=== PATIENT | female | born 1990 | race Caucasian/White ===

== ENCOUNTER 2021-08-01 07:33 | Emergency (ER) | payer OTHER, SELFPAY ==
[2021-08-01 07:49] VITALS: BP 134/85; PULSE 64; RESP 18; TEMP 36.8; O2SAT 98; BMI 35.5
--- NOTE | 2021-08-01 08:16 | ED_ITS ---
HPI - Medical Clearance General Chief complaint: Medical Clearance Stated complaint: med clearance Time Seen by Provider: 08/01/21 08:16 Source: patient Mode of arrival: ambulatory Limitations: no limitations History of Present Illness complaint: medical clearance requested Onset (ago): day(s) (1) Reason for Medical Clearance: other (issues at [facility] - requesting drug screen to settle dispute) Place: other ([facility]) Alleged Intoxication: No Compliant with Home Medications: Yes Traumatic Symptoms: denies traumatic injury Associated Symptoms: denies other symptoms Treatments Prior to Arrival: none Related Information Allergies Allergy/AdvReac Type Severity Reaction Status Date / Time No Known Allergies Allergy Verified 08/01/21 07:48 Review of Systems Review of Systems: Constitutional : No Fever, No Chills ENT/Mouth : No sore throat, No Rhinorrhea Eyes: No Eye Pain, No Swelling, No Redness Cardiovascular : No Chest Pain, No SOB Respiratory : No Cough, No Sputum Gastrointestinal : No Nausea, No Vomiting, No Diarrhea Genitourinary : No Dysuria Musculoskeletal : No joint pain, No Myalgias, No Joint Swelling Skin : No Skin Lesions, No rash Neuro : No Weakness, No Numbness, No Dizziness, No Headache Psych : No Anxiety/Panic, No Depression PMFSH Past Medical History Attestation statement: The following information was validated with the patient. Medical History Asthma Social History Social History (Updated 08/01/21 @ 08:23 by Zenobia Srivastava DO) Patient Tobacco Use Status: Current everyday Tobacco user Substance Use Type: Former Substance User Advance Directives: No Advance Directives Information Provided: No Physical Exam Vital Signs: Vital Signs: Last Vital Signs Temp 98.3 F 08/01/21 07:49 Pulse 64 08/01/21 07:49 Resp 18 08/01/21 07:49 BP 134/85 08/01/21 07:49 Pulse Ox 98 08/01/21 07:49 BMI result Body Mass Index 35.5 Appearance: Alert. Oriented X3. No acute distress. Eyes: Pupils equal, round and reactive to light. ENT: Pharynx normal. Neck: Normal inspection. Neck supple. CVS: Normal heart rate and rhythm. Pulses normal. Respiratory: No respiratory distress. Breath sounds normal. Abdomen: Soft and non-tender. Skin: Skin warm and dry. Normal skin color. Extremities: No lower extremity edema. Neuro: Oriented X 3. No motor deficit. No sensory deficit. MDM - Medical Clearance MDM Narrative Medical decision making narrative: 31 yo female with asthma at [facility] in recovery doing well having issues with other residents - seems to be some accusations of relapse among the residents. Patient requesting drug test at this time. Has no complaints does not appear under the influence. Drug test ordered. Discharge Plan Discharge Clinical Impression: Normal exam Patient Disposition: Home, Self-Care Instructions: Normal Exam (ED) Additional Instructions: return to ED for any worsening symptoms or concerns good luck with your recovery.
[2021-08-01 08:26] LABS: Amphetamine Screen Urine POSITIVE (Not Detect); Barbiturates, Urine Not Detected (Not Detect); Benzodiazepines Screen Urine Not Detected (Not Detect); Cannabinoid Screen Urine POSITIVE (Not Detect); Cocaine Screen Urine Not Detected (Not Detect); Fentanyl, urine POSITIVE (Not Detect); Opiate Screen Urine Not Detected (Not Detect); Phencyclidine Screen Urine Not Detected (Not Detect)
== END 2021-08-01 08:37 | disposition home or self-care (01) ==
PROVIDERS: Emergency Provider Emergency Medicine
DX: Z03.89 Encounter for observation for other suspected diseases and conditions ruled out (principal); J45.909 Unspecified asthma, uncomplicated
CPT/HCPCS: 80307; 99282

== ENCOUNTER 2023-08-19 09:10 | Emergency (ER) | payer OTHER, SELFPAY ==
--- NOTE | ~2023-08-19 | CT_ITS ---
EXAMINATION: CT HEAD WITHOUT CONTRAST CLINICAL INFORMATION: Headache. COMPARISON: 06/29/2017 TECHNIQUE: Contiguous axial imaging was performed from the skull base to vertex without intravenous administration of contrast. This CT examination was performed using dose optimization techniques as appropriate, variously including the following: *Automated exposure control *Adjustment of mA and/or kV according to patient size (this includes techniques or standardized protocols for targeted exams where dose is matched to indication/reason for exam; i.e. extremities or head) *Use of iterative reconstruction technique DLP: 667 mGy-cm FINDINGS: There is no evidence of acute intracranial hemorrhage or territorial infarction. No mass effect or midline shift is seen. [place] to white matter differentiation is well preserved. No extra-axial fluid collections are identified. No hydrocephalus. The osseous structures and soft tissues are intact. Mucoperiosteal thickening of the ethmoid air cells. Mild mucosal thickening of the sphenoid sinuses. Air-fluid levels in bilateral maxillary sinuses, right greater than left. Mastoid air cells are clear. CT/CT head/brain wo IV con IMPRESSION: No acute intracranial pathology. Acute maxillary sinus disease.
--- NOTE | ~2023-08-19 | XR_ITS ---
EXAMINATION: XR CHEST CLINICAL INFORMATION: Cough and shortness of breath COMPARISON: 06/29/2017 TECHNIQUE: 2 views of the chest were obtained. FINDINGS: No significant abnormality is noted involving the heart, lungs, mediastinum, bony thorax or soft tissues. XR/XR chest 2V IMPRESSION: Unremarkable examination.
[2023-08-19 09:14] VITALS: BP 119/46; PULSE 58; RESP 19; TEMP 36.6; O2SAT 98; BMI 33.3
--- NOTE | 2023-08-19 09:17 | ECG_ITS ---
Test Reason : syncope? Blood Pressure : / mmHG Vent. Rate : 062 BPM Atrial Rate : 062 BPM P-R Int : 152 ms QRS Dur : 098 ms QT Int : 392 ms P-R-T Axes : 034 040 022 degrees QTc Int : 397 ms Sinus rhythm with Premature atrial complexes Otherwise normal ECG No previous ECGs available Referred By: Generic ED Physician Electronically Signed By:MAK LOONEY MD
[2023-08-19 09:36] LABS: MANUAL DIFF FLAG NO
[2023-08-19 09:38] LABS: Basophils Percent Auto 0.6 % (0-2); Eosinophils Absolute Auto 0.7 X10*3/uL (0.0-0.4); Eosinophils Percent Auto 10.2 % (0-4); Hematocrit 37.2 % (37.0-47.0); Hemoglobin 12.1 g/dl (12.0-16.0); Imm Gran Abs Auto 0.01 X10*3/uL (0.00-0.03); Imm Gran Pct Auto 0.1 % (0.0-0.4); Lymphocytes Absolute Auto 2.3 X10*3/uL (1.2-4.9); Lymphocytes Percent Auto 32.3 % (20-40); Mean Corpuscular HGB Conc 32.5 g/dl (31.0-35.0); Mean Corpuscular Volume 89.2 fL (80.0-98.0); Mean Platelet Volume 9.6 fL (9.4-12.3); Monocytes Absolute Auto 0.7 X10*3/uL (0.1-1.2); Monocytes Percent Auto 9.2 % (2-11); Neutrophils Absolute Auto 3.4 x10*3/uL (2.0-8.3); Neutrophils Percent Auto 47.6 % (45-73); Platelet Count 280 X10*3/uL (160-400); Red Blood Count 4.17 X10*6/uL (4.20-5.50); White Blood Count 7.2 X10*3/uL (4.8-10.8)
[2023-08-19 09:42] LABS: UPreg QC Valid YES; Urine Pregnancy NEGATIVE (NEGATIVE)
[2023-08-19 09:52] LABS: Anion Gap 17 (12-20); Blood Urea Nitrogen 11 mg/dL (9-16); Calcium 9.6 mg/dL (8.4-10.2); Carbon Dioxide 26 mmol/L (22-29); Chloride 103 mmol/L (96-108); Creatinine Clr Calc Pharmacy 126.6; Estimated Glomerular Filt Rate > 60; Glucose Random 107 mg/dL (60-115); Potassium 3.6 mmol/L (3.3-5.1); Sodium 142 mmol/L (135-145)
[2023-08-19 09:55] LABS: Appearance Urine Clear; Color Urine Orange
[2023-08-19 09:56] LABS: Glucose Urine UA Negative (Negative); Urine Blood Negative (Negative)
[2023-08-19 09:57] LABS: Leukocyte Esterase Urine Negative (Negative); UMIC TRIGGER UACC YES
[2023-08-19 10:01] LABS: Troponin-I High Sensitivity < 2.7 ng/L (<3.5-17.0)
[2023-08-19 10:31] LABS: Influenza A PCR NEGATIVE (Negative); Influenza B PCR NEGATIVE (Negative); Resp Syncy Virus RNA Qual PCR NEGATIVE (Negative); SARS COV2 PCR INHOUSE NEGATIVE (Negative)
[2023-08-19 10:37] LABS: RBC Urine 0-2 /HPF (0-2); WBC Urine 0-5 /HPF (0-5)
[2023-08-19 10:38] LABS: Bacteria Urine None Seen (None Seen); Hyaline Casts Urine 0-2 /LPF (0-2)
[2023-08-19 12:32] VITALS: BP 133/76; PULSE 64; RESP 18; TEMP 36.6; O2SAT 98
--- NOTE | 2023-08-19 12:33 | ED.GENADULT ---
HPI - General Adult General Chief complaint: General Medical Stated complaint: Seizure this am? Facial pain Time Seen by Provider: 08/19/23 13:47 Source: patient Mode of arrival: ambulatory Limitations: no limitations History of Present Illness HPI narrative: Patient is a 33-year-old female with history of seizures on keppra and headaches presenting to the emergency department reporting that she got up to go to the bathroom at 3:00 a.m. last night and woke on the bathroom floor at 7:00 a.m. today. States she typically can tell when she has had a seizure and states this episode does not feel similar to that. She reports nausea and vomiting as well as headaches, cough and shortness of breath for 4 days prior to this episode. Complains of ongoing headache, especially around right eye. Denies diarrhea. Reports some mild lower abdominal cramping. States she has been taking her Keppra as prescribed. Also complains of scabs to her face and states that she had similar symptoms when she previously tested positive for syphilis. Denies rash anywhere else on her body. She reports that she has recently had unprotected sexual intercourse. Denies back or flank pain. Denies fevers. MD complaint: syncope versus seizure Onset (ago): hour(s) Location: head Radiation: non-radiation Severity: moderate Quality: aching Pain Consistency: constant Relieving factors: none Treatments prior to arrival: none Related Data Previous Rx's ?Medication ?Instructions ?Recorded amoxicillin 875 mg-potassium 1 tab PO BID #14 tabs 08/19/23 clavulanate 125 mg tablet metronidazole 500 mg tablet 500 mg PO BID #14 tabs 08/19/23 mupirocin 2 % topical ointment 1 appl topical BID #15 grams 08/19/23 Allergies Allergy/AdvReac Type Severity Reaction Status Date / Time No Known Allergies Allergy Verified 08/19/23 09:16 Review of Systems Review of Systems: As per HPI. Yes all other systems are reviewed and are negative Constitutional: Constitutional: Reports as per HPI [facility] Past Medical History Medical History Asthma Social History Social History (Updated 08/01/21 @ 08:23 by Lauryn Srivastava DO) Patient Tobacco Use Status: Current everyday Tobacco user Substance Use Type: Former Substance User Advance Directives: No Advance Directives Information Provided: Yes Physical Exam ED Vital Signs: Vital Signs - 24 hr 08/19/23 09:14 08/19/23 12:32 08/19/23 14:04 Temperature 98 F 98 F 99.0 F Pulse Rate 58 64 63 Respiratory Rate 19 18 16 Blood Pressure 119/46 L 133/76 114/57 L Pulse Oximetry 98 98 99 Oxygen Delivery Method Room Air Room Air Room Air BMI result Body Mass Index 33.3 Vital signs have been reviewed and appear to be correct. Blood pressure normal. Heart rate normal. Respiratory rate normal. Temperature normal. Oxygen saturation normal. Const General: cooperative, healthy appearing and no acute distress Orientation/consciousness: oriented to person, oriented to place, oriented to time and patient oriented x3 Limitations: no limitations HENMT Head: Yes normocephalic and Yes atraumatic Ears: external ears normal General nose exam: Normal external nose present Face and sinus: Yes face symmetric Mouth: oropharynx normal and moist mucous membranes Throat: Yes uvula midline Eyes Pupils: Equal, round and reactive pupils present Neck Neck: Yes normal visual inspection, Yes no meningeal signs and Yes supple Resp Effort & Inspection: normal respiratory effort and able to speak in complete sentences Auscultation: clear to auscultation bilaterally Cardio Rate: regular rate Rhythm: regular rhythm Heart sounds: S1 normal heart sound present and S2 normal heart sound present GI Palpation (GI): Soft to palpation and Tenderness to palpation present (GI) suprapubicly Auscultation: normoactive bowel sounds General: Yes no CVA tenderness Back/Spine/Pelvis Back: no CVA tenderness Skin Other: 1-2mm scabs to bridge of nose, chin, cheek without drainage, surrounding erythema, warmth or fluctuance General skin exam: elasticity normal and turgor normal Neuro General: oriented to person, oriented to place, oriented to time, patient oriented x3, gait normal, tone normal, moves all extremities, Normal light touch and pain sensation, no meningeal signs, no focal motor deficits, CN's II-XI intact bilaterally and deep tendon reflexes 2+ bilaterally Cranial nerves: Yes Equal, round and reactive pupils present Cognition (Neuro): normal cognition Motor exam (neuro): 5/5 motor strength present throughout, Pronator motor function not present, no tremor noted, no asterixis, Motor fasciculations not present, Normal motor muscle tone present throughout and Motor abnormalities not present Extrem General: Yes full ROM, Yes no pedal edema and Yes no calf tenderness Psych Mental Status: mental status grossly normal Affect: normal affect Thought process: Normal thought process present Course Course Course Narrative: This is a Rapid Medical Examination (RME) performed by Breanna Caldera PA-C in triage. Full HPI, ROS, assessment and treatment plan per primary provider in the Main ED. 33 yo female with history of seizure disorder on keppra 750 bid, headaches who presents to the ER for evaluation of a possible seizure vs syncopal episode. went to bathroom at 3am and woke up 7am on the floor. reports severe headache. has been sick for 4 days prior w/ sob, cough, congestion. also reports dysuria and vaginal pain, hx unprotected sex and wants evaluation for STIs. Plan: lab workup is unremarkable so far. check CXR check CT head Medications Administered Discontinued Medications Generic Name Dose Route Start Last Admin Trade Name Freq PRN Reason Stop Dose Admin Diphenhydramine HCl 25 mg 08/19/23 13:58 08/19/23 15:30 Diphenhydramine Hcl 50 Mg/Ml Vial IVPUSH 08/19/23 13:59 25 mg ONCE ONE Administration Sodium Chloride 1,000 mls @ 999 mls/hr 08/19/23 14:00 08/19/23 15:35 Ns IV 08/19/23 15:00 999 mls/hr .Q1H1M CYNTHIA Administration Ketorolac Tromethamine 15 mg 08/19/23 13:58 08/19/23 15:30 Ketorolac Tromethamine 15 Mg/Ml Vial IVPUSH 08/19/23 13:59 15 mg ONCE ONE Administration Metoclopramide HCl 10 mg 08/19/23 13:58 08/19/23 15:31 Metoclopramide Hcl 10 Mg/2 Ml Vial IVPUSH 08/19/23 13:59 10 mg ONCE ONE Administration Medical Decision Making Medical Decision Making MDM Narrative: Patient is a 33-year-old female with history of seizures on keppra and headaches presenting to the emergency department reporting that she got up to go to the bathroom at 3:00 a.m. last night and woke on the bathroom floor at 7:00 a.m. today. On exam patient is awake, A+Ox3, VS WNL, afebrile, normal neurological exam without focal deficits, physical exam findings as above. Given reported symptoms and physical exam findings, initial differential includes syncope, seizure, dehydration, electrolyte abnormality, UTI, STI, impetigo, secondary syphilis. Labs notable for no leukocytosis, no anemia, no significant electrolyte abnormalities, very slightly elevated CK, negative troponin. Viral serology negative. No evidence of infection on urinalysis, negative . EKG shows sinus rhythm with PACs. Urine is without evidence of infection. X-ray chest notable for no evidence of pneumonia. CT head notable for no acute intracranial abnormalities, acute sinusitis. My interpretation is in agreement with the radiologist's interpretation. Feel it in the context of recent vomiting, patient likely had syncopal episode due to dehydration. IV fluids given in the emergency department as well as medications for headache which improved patient's symptoms. Trichomonas swab positive, will send prescription for metronidazole. Some pelvic swabs which were self-obtained by patient are pending and patient will be contacted with any positive results. Rash on face more consistent with impetigo, will send prescription for mupirocin. Instructed patient follow-up with primary care provider. Return precautions discussed. Patient verbalized understanding of and agreement with plan. Differential Diagnosis Differential Diagnoses: The differential diagnosis associated with the presentation includes As per [facility] Admission/Observation Consideration of admission/observation: Escalation of care including admission/observation considered Patient would have been admitted to the hospital had their work up had any findings where hospital admission was appropriate and their clinical presentation warranted hospital admission. Lab Data [facility] Lab Attestation statement: I reviewed the patient's lab results. As per [facility] 08/19/23 09:30 08/19/23 09:30 Labs: Lab Results 08/19/23 Range/Units 09:30 WBC 7.2 (4.8-10.8) X10*3/uL RBC 4.17 L (4.20-5.50) X10*6/uL Hgb 12.1 (12.0-16.0) g/dl Hct 37.2 (37.0-47.0) % MCV 89.2 (80.0-98.0) fL MCH 29.0 (27.0-33.0) pg MCHC 32.5 (31.0-35.0) g/dl RDW 13.0 (11.0-16.0) % Plt Count 280 (160-400) X10*3/uL MPV 9.6 (9.4-12.3) fL Immature Gran % (Auto) 0.1 (0.0-0.4) % Neut % (Auto) 47.6 (45-73) % Lymph % (Auto) 32.3 (20-40) % [place] % (Auto) 9.2 (2-11) % Eos % (Auto) 10.2 H (0-4) % Baso % (Auto) 0.6 (0-2) % Lymph # (Auto) 2.3 (1.2-4.9) X10*3/uL [place] # (Auto) 0.7 (0.1-1.2) X10*3/uL Eos # (Auto) 0.7 H (0.0-0.4) X10*3/uL Baso # (Auto) 0.0 (0.0-0.2) X10*3/uL Abs Immat Gran (auto) 0.01 (0.00-0.03) X10*3/uL Absolute Neuts (auto) 3.4 (2.0-8.3) x10*3/uL Absolute Nucleated RBC 0.000 (0.0-0.012) X10*3/uL Nucleated RBC % (auto) 0.0 (0.0-0.2) /100WBC Sodium 142 (135-145) mmol/L Potassium 3.6 (3.3-5.1) mmol/L Chloride 103 (96-108) mmol/L Carbon Dioxide 26 (22-29) mmol/L Anion Gap 17 (12-20) BUN 11 (9-16) mg/dL Creatinine 0.71 (0.5-1.4) mg/dL Estim Creat Clear Calc 126.6 Estimated GFR > 60 Random Glucose 107 (60-115) mg/dL Calcium 9.6 (8.4-10.2) mg/dL Total Creatine Kinase 147 H (26-140) U/L Troponin I High Sens < 2.7 (<3.5-17.0) ng/L Urine Color [place] Urine Appearance Clear Urine pH TNP Ur Specific [place] TNP Urine Protein See Note (Neg-Trace) mg/dL Urine Glucose (UA) Negative (Negative) mg/dL Urine Ketones See Note (Negative) mg/dL Urine Blood Negative (Negative) Urine Nitrite See Note (Negative) Ur Leukocyte Esterase Negative (Negative) Urine RBC 0-2 (0-2) /HPF Urine WBC 0-5 (0-5) /HPF Ur Squamous Epith Cells 3-5 (0-2) /HPF Urine Bacteria None Seen (None Seen) Hyaline Casts 0-2 (0-2) /LPF Urine Test NEGATIVE (NEGATIVE) Influenza Type A (PCR) NEGATIVE (Negative) Influenza Type B (PCR) NEGATIVE (Negative) RSV RNA Qual (PCR) NEGATIVE (Negative) SARS-CoV-2 RNA (RT-PCR) NEGATIVE (Negative) Independent Interpretation I performed an independent interpretation of an: Plain X-Ray and CT Scan Interpretation: No evidence of pneumonia on chest x-ray No acute intracranial abnormalities on CT, acute sinusitis noted Radiology Impression Discussion of test interpretation with radiology: I have reviewed the radiologist's reading. Radiologist Impression: XR/XR chest 2V IMPRESSION: Unremarkable examination. CT/CT head/brain wo IV con IMPRESSION: No acute intracranial pathology. Acute maxillary sinus disease. External Record Review External record reviewed: Inpatient record, Office record and Outpatient record Prescription Management I considered prescription management with: Antibiotic Discharge Plan Discharge Clinical Impression: Acute rhinosinusitis, Trichomoniasis Patient Disposition: Home, Self-Care Instructions: Syncope (DC), Rhinosinusitis (DC) Additional Instructions: You were evaluated in the emergency department today for headache and unresponsive episode. This appears to be related to dehydration from your recent illness and vomiting. We recommend that you ensure adequate fluid intake, especially fluids with electrolytes such as Gatorade, Powerade, Pedialyte, etc.. You are being prescribed antibiotics for a sinus infection, please complete the full course as prescribed. You are also being prescribed antibiotics for trichomoniasis. You are being prescribed an antibiotic ointment for the areas on your face, use this as prescribed. Some tests are still pending and you will be contacted with any positive results. Please follow-up with your primary care provider. Return to the emergency department with any new or concerning symptoms. Prescriptions: New amoxicillin-pot clavulanate 875-125 mg tablet 1 tab PO BID Qty: 14 0RF mupirocin 2 % ointment 1 appl topical BID Qty: 15 0RF metronidazole 500 mg tablet 500 mg PO BID Qty: 14 0RF Print Language: Serbian
[2023-08-19 14:04] VITALS: BP 114/57; PULSE 63; RESP 16; TEMP 37.2; O2SAT 99
[2023-08-19] MEDS: Ketorolac Tromethamine 15 MG/ML VIAL IVPUSH (15:30)
[2023-08-19] MEDS: diphenhydrAMINE HCL 50 MG/ML VIAL 25 MG IVPUSH (15:30)
[2023-08-19] MEDS: Metoclopramide HCl 10 MG/2 ML VIAL IVPUSH (15:31)
[2023-08-19] MEDS: 0.9 % Sodium Chloride 1,000 ML 999 ML IV (15:35)
[2023-08-19 17:26] VITALS: BP 100/54; PULSE 59; RESP 14; TEMP 36.7; O2SAT 98
[2023-08-19 17:33] LABS: CT PCR NOT DETECTED (Not Detect.); NG PCR NOT DETECTED (Not Detect.)
[2023-08-20 08:47] LABS: Syphilis Screen Reactive (Nonreactive)
[2023-08-20 12:21] LABS: BV Int Neg Control Negative (Negative); BV Int Pos Control Positive (Positive)
[2023-08-26 09:14] LABS: RPR Quantitative Reactive 1:2 (Nonreactive); T.Pallidum Particle Agg Test Reactive (Nonreactive)
== END 2023-08-19 17:27 | disposition home or self-care (01) ==
PROVIDERS: Physician Assistant; Registered Nurse Emergency; Emergency Provider Emergency Medicine
DX: J01.90 Acute sinusitis, unspecified (principal); A59.9 Trichomoniasis, unspecified; R11.2 Nausea with vomiting, unspecified; R23.4 Changes in skin texture; R06.02 Shortness of breath; R05.9 Cough, unspecified; R94.31 Abnormal electrocardiogram [ECG] [EKG]; R51.9 Headache, unspecified; Z11.52 Encounter for screening for COVID-19; Z20.822 Contact with and (suspected) exposure to COVID-19; Z79.899 Other long term (current) drug therapy
CPT/HCPCS: 0241U; 0353U; 36415; 70450; 71046; 80048; 81001; 81025; 82550; 84484; 85025; 86592; 86780; 87480; 87510; 87660; 93005; 96374; 96375; 99284; J1200; J1885; J2765

== ENCOUNTER → 2023-08-19 09:17 | Outpatient (BNV) | payer OTHER, SELFPAY | PROVIDERS: Visit Provider Internal Medicine Cardiovascular Disease | DX: R55 Syncope and collapse (principal) | CPT/HCPCS: 93010 ==

== ENCOUNTER 2023-08-22 11:15 | Emergency (ER) | payer OTHER, SELFPAY ==
[2023-08-22 11:38] VITALS: BP 119/50; PULSE 63; RESP 16; TEMP 37; O2SAT 95; BMI 35.8
--- NOTE | 2023-08-22 11:38 | ED.GENADULT ---
HPI - General Adult General Chief complaint: Urogenital-Female Stated complaint: Returning per provider Time Seen by Provider: 08/22/23 11:41 Source: patient and old records reviewed Mode of arrival: ambulatory Limitations: no limitations History of Present Illness HPI narrative: Patient is a 33-year-old female with history of seizures on keppra presenting to the ED after receiving a callback for a positive syphilis test performed on 08/18. Patient denies any new symptoms and states that she has been taking her Keppra as prescribed. Denies any seizures since previous visit. complaint: syphilis Onset (ago): day(s) Associated symptoms: denies other symptoms Treatments prior to arrival: none Related Data Previous Rx's ?Medication ?Instructions ?Recorded amoxicillin 875 mg-potassium 1 tab PO BID #14 tabs 08/19/23 clavulanate 125 mg tablet metronidazole 500 mg tablet 500 mg PO BID #14 tabs 08/19/23 mupirocin 2 % topical ointment 1 appl topical BID #15 grams 08/19/23 fluconazole 150 mg tablet 150 mg PO Q3D 2 doses #2 tabs 08/22/23 Allergies Allergy/AdvReac Type Severity Reaction Status Date / Time No Known Allergies Allergy Verified 08/22/23 11:39 Review of Systems Review of Systems: As per HPI Yes all other systems are reviewed and are negative Constitutional: Constitutional: Reports as per HPI [facility] Past Medical History Medical History Asthma Social History Social History (Updated 08/01/21 @ 08:23 by Lauryn Srivastava DO) Patient Tobacco Use Status: Current everyday Tobacco user Substance Use Type: Former Substance User Advance Directives: No Physical Exam ED Vital Signs: Vital Signs - 24 hr 08/22/23 11:38 Temperature 98.6 F Pulse Rate 63 Respiratory Rate 16 Blood Pressure 119/50 L Pulse Oximetry 95 Oxygen Delivery Method Room Air BMI result Body Mass Index 35.8 Vital signs have been reviewed and appear to be correct. Blood pressure normal. Heart rate normal. Respiratory rate normal. Temperature normal. Oxygen saturation normal. Const General: cooperative, healthy appearing and no acute distress Orientation/consciousness: oriented to person, oriented to place, oriented to time and patient oriented x3 Limitations: no limitations HENMT Head: Yes normocephalic and Yes atraumatic Ears: external ears normal General nose exam: Normal external nose present Face and sinus: Yes face symmetric Mouth: oropharynx normal and moist mucous membranes Throat: Yes uvula midline Eyes Pupils: Equal, round and reactive pupils present Neck Neck: Yes normal visual inspection and Yes supple Resp Effort & Inspection: normal respiratory effort and able to speak in complete sentences Auscultation: clear to auscultation bilaterally Cardio Rate: regular rate Rhythm: regular rhythm Heart sounds: S1 normal heart sound present and S2 normal heart sound present GI Palpation (GI): Soft to palpation and nontender Auscultation: normoactive bowel sounds General: Yes no CVA tenderness Back/Spine/Pelvis Back: no CVA tenderness Skin Other: scabs to face improved from visit on 08/18 General skin exam: elasticity normal and turgor normal Neuro General: oriented to person, oriented to place, oriented to time, patient oriented x3, moves all extremities, no focal motor deficits and CN's II-XI intact bilaterally Cranial nerves: Yes Equal, round and reactive pupils present Cognition (Neuro): normal cognition Extrem General: Yes full ROM, Yes no pedal edema and Yes no calf tenderness Psych Mental Status: mental status grossly normal Affect: normal affect Thought process: Normal thought process present Course Course Course Narrative: RME performed by Alie Cordova PA-C. Patient is a 33 year old assigned female at presenting to the emergency department with a positive syphilis test. Patient states she was called and informed of a positive syphilis test. Patient states that she continues to take her Keppra as directed. Detailed physical exam and review of systems are deferred to the trolley coach driver. Labs ordered. Patient placed back in the waiting room pending room availability and results. Medications Administered Discontinued Medications Generic Name Dose Route Start Last Admin Trade Name Freq PRN Reason Stop Dose Admin Penicillin G Benzathine 2,400,000 unit 08/22/23 11:39 08/22/23 11:47 Penicillin G Benzathine 2,400,000 Unit/4 Ml Syringe IM 08/22/23 11:40 2,400,000 unit ONCE ONE Administration Medical Decision Making Medical Decision Making MDM Narrative: Patient is a 33-year-old female with history of seizures on keppra presenting to the ED after receiving a callback for a positive syphilis test performed on 08/18. On exam patient is awake, A+Ox3, VS WNL, afebrile, normal neurological exam without focal deficits, physical exam findings as above. Given reported symptoms and physical exam findings, initial differential includes syphilis, at risk for HIV. Labs unremarkable, HIV and keppra testing pending and patient will be contacted with any positive results.. Patient treated with PCN G, mandatory reporting form completed. Instructed patient to notify any sexual partners of her positive results and to abstain from intercourse for the next 7 days. Patient stating that she needs to leave the emergency department and is not willing to wait for Infectious Disease consult. Will refer patient to ID outpatient. Patient also requesting referral to Neurology. Return precautions discussed. Patient verbalized understanding of and agreement with plan. Differential Diagnosis Differential Diagnoses: The differential diagnosis associated with the presentation includes syphilis, hiv, Lab Data [facility] Lab Attestation statement: I reviewed the patient's lab results. As per [facility] 08/22/23 11:55 08/22/23 11:55 Labs: Lab Results 08/22/23 Range/Units 11:55 WBC 6.1 (4.8-10.8) X10*3/uL RBC 4.18 L (4.20-5.50) X10*6/uL Hgb 12.2 (12.0-16.0) g/dl Hct 37.3 (37.0-47.0) % MCV 89.2 (80.0-98.0) fL MCH 29.2 (27.0-33.0) pg MCHC 32.7 (31.0-35.0) g/dl RDW 13.2 (11.0-16.0) % Plt Count 245 (160-400) X10*3/uL MPV 9.7 (9.4-12.3) fL Immature Gran % (Auto) 0.2 (0.0-0.4) % Neut % (Auto) 51.9 (45-73) % Lymph % (Auto) 28.5 (20-40) % [place] % (Auto) 8.5 (2-11) % Eos % (Auto) 10.1 H (0-4) % Baso % (Auto) 0.8 (0-2) % Lymph # (Auto) 1.8 (1.2-4.9) X10*3/uL [place] # (Auto) 0.5 (0.1-1.2) X10*3/uL Eos # (Auto) 0.6 H (0.0-0.4) X10*3/uL Baso # (Auto) 0.1 (0.0-0.2) X10*3/uL Abs Immat Gran (auto) 0.01 (0.00-0.03) X10*3/uL Absolute Neuts (auto) 3.2 (2.0-8.3) x10*3/uL Absolute Nucleated RBC 0.000 (0.0-0.012) X10*3/uL Nucleated RBC % (auto) 0.0 (0.0-0.2) /100WBC Sodium 141 (135-145) mmol/L Potassium 3.9 (3.3-5.1) mmol/L Chloride 108 (96-108) mmol/L Carbon Dioxide 26 (22-29) mmol/L Anion Gap 11 L (12-20) BUN 9 (9-16) mg/dL Creatinine 0.70 (0.5-1.4) mg/dL Estim Creat Clear Calc 133.4 Estimated GFR > 60 Random Glucose 71 (60-115) mg/dL Calcium 8.9 D (8.4-10.2) mg/dL Magnesium 1.9 (1.6-2.6) mg/dL Total Bilirubin 0.3 (0.0-1.0) mg/dL AST 18 (5-31) U/L ALT 14 (0-31) U/L Alkaline Phosphatase 49 (39-117) U/L Total Protein 6.7 (6.5-8.0) g/dL Albumin 3.8 (3.5-5.0) g/dL External Record Review External record reviewed: Inpatient record, Office record and Outpatient record Prescription Management I considered prescription management with: Antibiotic Discharge Plan Discharge Clinical Impression: Syphilis Patient Disposition: Home, Self-Care Instructions: Sexually Transmitted Diseases (ED), Safe Sex Practices (ED) Additional Instructions: You were treated in the emergency department today with penicillin after you tested positive for syphilis. It is important that you notify any sexual partners of your positive results and you should abstain from intercourse for the next 7 days. You were given additional testing today for HIV and if the results are positive you will be contacted. We recommend that you follow-up with Infectious Disease, please call their office to schedule an appointment. Your Keppra level was tested today and you will be contacted if any changes need to be made to her medications. You are also being referred to neurology. Return to the emergency department if you have any new or concerning symptoms. Prescriptions: No Action amoxicillin-pot clavulanate 875-125 mg tablet 1 tab PO BID Qty: 14 0RF mupirocin 2 % ointment 1 appl topical BID Qty: 15 0RF metronidazole 500 mg tablet 500 mg PO BID Qty: 14 0RF fluconazole 150 mg tablet 150 mg PO Q3D Qty: 2 0RF Referrals: [facility] [place] [Provider Group] Moses Vallejo MD [Physician] - Print Language: [place]
[2023-08-22] MEDS: Penicillin G Benzathine 2,400,000 UNIT/4 ML SYRINGE 2400000 UNIT IM (11:47)
[2023-08-22 11:59] LABS: MANUAL DIFF FLAG NO
[2023-08-22 12:01] LABS: Basophils Absolute Auto 0.1 X10*3/uL (0.0-0.2); Basophils Percent Auto 0.8 % (0-2); Eosinophils Absolute Auto 0.6 X10*3/uL (0.0-0.4); Eosinophils Percent Auto 10.1 % (0-4); Hematocrit 37.3 % (37.0-47.0); Hemoglobin 12.2 g/dl (12.0-16.0); Imm Gran Abs Auto 0.01 X10*3/uL (0.00-0.03); Imm Gran Pct Auto 0.2 % (0.0-0.4); Lymphocytes Absolute Auto 1.8 X10*3/uL (1.2-4.9); Lymphocytes Percent Auto 28.5 % (20-40); Mean Corpuscular HGB Conc 32.7 g/dl (31.0-35.0); Mean Corpuscular Hemoglobin 29.2 pg (27.0-33.0); Mean Corpuscular Volume 89.2 fL (80.0-98.0); Mean Platelet Volume 9.7 fL (9.4-12.3); Monocytes Absolute Auto 0.5 X10*3/uL (0.1-1.2); Monocytes Percent Auto 8.5 % (2-11); Neutrophils Absolute Auto 3.2 x10*3/uL (2.0-8.3); Neutrophils Percent Auto 51.9 % (45-73); Platelet Count 245 X10*3/uL (160-400); Red Blood Count 4.18 X10*6/uL (4.20-5.50); Red Cell Distribution Width 13.2 % (11.0-16.0); White Blood Count 6.1 X10*3/uL (4.8-10.8)
[2023-08-22 12:18] LABS: Alanine Aminotransferase 14 U/L (0-31); Albumin Level 3.8 g/dL (3.5-5.0); Alkaline Phosphatase 49 U/L (39-117); Anion Gap 11 (12-20); Aspartate Amino Transferase 18 U/L (5-31); Bilirubin Total 0.3 mg/dL (0.0-1.0); Blood Urea Nitrogen 9 mg/dL (9-16); Calcium 8.9 mg/dL (8.4-10.2); Carbon Dioxide 26 mmol/L (22-29); Chloride 108 mmol/L (96-108); Creatinine Clr Calc Pharmacy 133.4; Estimated Glomerular Filt Rate > 60; Glucose Random 71 mg/dL (60-115); Magnesium 1.9 mg/dL (1.6-2.6); Potassium 3.9 mmol/L (3.3-5.1); Sodium 141 mmol/L (135-145); Total Protein 6.7 g/dL (6.5-8.0)
[2023-08-22 12:37] VITALS: BP 119/75; PULSE 57; RESP 16; TEMP 36.7; O2SAT 97
[2023-08-22 12:39] LABS: HIV AB/AG Nonreactive (Nonreactive); HIV Num 1 0.04 S/CO (0.00-0.99)
[2023-08-25 19:57] LABS: Levetiracetam Keppra <2.0 mcg/mL (6.0-46.0)
== END 2023-08-22 12:39 | disposition home or self-care (01) ==
PROVIDERS: Physician Assistant Medical; Registered Nurse Emergency; Emergency Provider Emergency Medicine
DX: A53.9 Syphilis, unspecified (principal); R56.9 Unspecified convulsions; Z79.899 Other long term (current) drug therapy
CPT/HCPCS: 36415; 80053; 80177; 83735; 85025; 87389; 96372; 99282; 99284; J0561

== ENCOUNTER 2023-10-07 23:38 | Emergency (ER) | payer OTHER, SELFPAY ==
[2023-10-08 00:13] VITALS: BP 102/53; PULSE 80; RESP 20; TEMP 36.6; O2SAT 98; BMI 35.2
--- NOTE | 2023-10-08 02:22 | ED_ITS ---
HPI - General Adult General Chief complaint: General Medical Stated complaint: uro gen female Time Seen by Provider: 10/08/23 02:08 Source: patient Mode of arrival: ambulatory Limitations: no limitations History of Present Illness ED Provider: DR. Perez HPI narrative: 33-year-old female recently had unprotected sex, patient was tested positive for syphilis patient received penicillin G treatment a month and half, patient still have the same symptoms of lower abdominal cramps and vaginal discharge would like to repeat treatment for syphilis and be retested. Related Data Previous Rx's ?Medication ?Instructions ?Recorded amoxicillin 875 mg-potassium 1 tab PO BID #14 tabs 08/19/23 clavulanate 125 mg tablet metronidazole 500 mg tablet 500 mg PO BID #14 tabs 08/19/23 mupirocin 2 % topical ointment 1 appl topical BID #15 grams 08/19/23 fluconazole 150 mg tablet 150 mg PO Q3D 2 doses #2 tabs 08/22/23 Allergies Allergy/AdvReac Type Severity Reaction Status Date / Time No Known Allergies Allergy Verified 10/08/23 00:16 Review of Systems Review of Systems: All other systems are reviewed and are negative Constitutional: Reports as per HPI and Reports no additional constitutional complaints Eyes: Reports as per HPI and Reports no additional eye complaints Reports system reviewed and no additional complaints, except as documented Cardiovascular: Reports as per HPI and Reports no additional cardiovascular complaints Respiratory: Reports as per HPI and Reports no additional respiratory complaints Gastrointestinal: Reports as per HPI and Reports no additional gastrointestinal complaints Genitourinary: Reports no additional female genitourinary complaints Musculoskeletal: Reports no additional musculoskeletal complaints Skin/Breast: Reports system reviewed and no additional complaints, except as docu Psychiatric: Reports no additional psychiatric complaints Endocrine: Reports no additional endocrine complaints Hematologic/Lymphatic: Reports no additional hematologic/lymphatic complaints Allergic/Immunologic: Reports no additional allergic/immunologic complaints Reports system reviewed and no additional complaints, except as documented and Reports Abnormal speech present [facility] Past Medical History Medical History Asthma Social History Social History Patient Tobacco Use Status: Current everyday Tobacco user Substance Use Type: Former Substance User Advance Directives: No Advance Directives Information Provided: No Physical Exam ED Vital Signs: Vital Signs - 24 hr 10/08/23 00:13 Temperature 97.9 F Pulse Rate 80 Respiratory Rate 20 Blood Pressure 102/53 L Pulse Oximetry 98 Oxygen Delivery Method Room Air BMI result Body Mass Index 35.2 Vital signs have been reviewed and appear to be correct. Blood pressure elevated. Heart rate normal. Respiratory rate normal. Temperature normal. Oxygen saturation normal. Appearance: Alert. Oriented X3. No acute distress. Head: Normal external exam. Normocephalic. Atraumatic. No Small signs noted. No raccoon eyes noted Eyes: PERRLA. EOMI. Conjunctiva and sclera normal. Eyelids normal. ENT: TM's Normal. Pharynx normal. Uvula midline. Moist mucous membranes. No trismus noted. No drooling noted. No muffled voice noted. Neck: Normal inspection. Neck supple. FROM. No adenopathy. Thyroid Normal. No meningeal signs. No neck mass noted. CVS: Normal heart rate and rhythm. Heart sound normal. No murmurs noted. Pulses normal throughout. Respiratory: No respiratory distress. Painless inspiration. Breath sounds normal. No wheezes/rales/rhonchi noted. Chest nontender. No accessory muscle usage noted or decreased air movement noted. Abdomen: Soft and nontender. Bowel sounds normal in all 4 quadrants. No distention noted. No organomegaly noted. No visible injury noted. Back: No CVA tenderness. Full range of motion noted. Skin: Skin warm and dry. Normal skin color. Normal skin turgor. No rashes /lesions/lacerations noted. Extremities: No lower extremity edema. Extremities exhibit normal range of motion. Extremities nontender. Neuro: Oriented X 3. Cranial nerve exam: II-XII are grossly intact No motor deficit. No sensory deficit. Reflexes normal. Course Reevaluation(s) Reevaluation #1: History of unprotected sex, patient had history of syphilis via sexual intercourse was treated with penicillin G patient still concern of the disease and would like to be rechecked and re-treated today. No known history of penicillin allergy I will repeat penicillin G injection. We test for STDs. Time: 02:31 Medical Decision Making Differential Diagnosis Differential Diagnoses: The differential diagnosis associated with the presentation includes (STDs) Admission/Observation Consideration of admission/observation: Escalation of care including admission/observation considered Discharge Plan Discharge Clinical Impression: Exposure to STD Patient Disposition: Home, Self-Care Instructions: Sexually Transmitted Diseases (ED), Safe Sex Practices (ED) Prescriptions: No Action amoxicillin-pot clavulanate 875-125 mg tablet 1 tab PO BID Qty: 14 0RF mupirocin 2 % ointment 1 appl topical BID Qty: 15 0RF metronidazole 500 mg tablet 500 mg PO BID Qty: 14 0RF fluconazole 150 mg tablet 150 mg PO Q3D Qty: 2 0RF Print Language: Sami
[2023-10-08] MEDS: Penicillin G Benzathine 2,400,000 UNIT/4 ML SYRINGE 2400000 UNIT IM (02:42)
[2023-10-08 03:08] VITALS: BP 100/54; PULSE 65; RESP 16; TEMP 36.5; O2SAT 96
[2023-10-08 03:21] VITALS: BP 100/54; PULSE 65; RESP 16; TEMP 36.5; O2SAT 96
[2023-10-08 07:49] LABS: HBS Num1 0.39 mIU/mL (0-7.99); HBc Num1 0.14 S/CO (0.00-0.79); HBsAGNum1 0.28 S/CO (0.00-0.99); HIV Num 1 6.83 S/CO (0.00-0.99); Hepatitis A Antibody IgM 0.19 Index (0-0.79); Hepatitis B Core Antibody Nonreactive (Nonreactive); Hepatitis B Surface Antigen Negative (Negative); ~HepC Num1 0.22 S/CO (0.00-0.79); ~Hepatitis A Antibody IgM Nonreactive (Nonreactive); ~Hepatitis B Surface Antibody NONREACTIVE (Nonreactive); ~Hepatitis C Antibody Nonreactive (Nonreactive)
[2023-10-08 08:04] LABS: Syphilis Screen Reactive (Nonreactive)
[2023-10-08 09:04] LABS: HIV AB/AG Nonreactive (Nonreactive); HIV Num 2 0.06 S/CO; HIV Num 3 0.07 S/CO
[2023-10-08 12:10] LABS: CT PCR NOT DETECTED (Not Detect.); NG PCR NOT DETECTED (Not Detect.)
[2023-10-09 09:33] LABS: Herpes Simplex Type 2 IgG <0.90 index
[2023-10-10 12:19] LABS: RPR Quantitative Reactive 1:2 (Nonreactive); T.Pallidum Particle Agg Test Reactive (Nonreactive)
== END 2023-10-08 03:22 | disposition home or self-care (01) ==
PROVIDERS: Emergency Provider Emergency Medicine
DX: N89.8 Other specified noninflammatory disorders of vagina (principal); R10.9 Unspecified abdominal pain; Z20.2 Contact with and (suspected) exposure to infections with a predominantly sexual mode of transmission
CPT/HCPCS: 36415; 86592; 86695; 86696; 86704; 86706; 86709; 86780; 86803; 87340; 87389; 87491; 87591; 96372; 99283; 99284; J0561

== ENCOUNTER 2023-10-23 11:30 | Outpatient (AMB) | payer OTHER, SELFPAY ==
--- NOTE | 2023-10-23 11:30 | MHC.OFFVIS ---
Vital Signs 10/23/23 11:34 Height 5 ft 5 in Weight 210 lb BMI 34.9 Pulse 85 Pulse Source Pulse Oximeter Pulse Oximetry (%) 98 Oxygen Delivery Method Room Air Intake Visit Reasons: reff ER for std exposure syphillis Allergies No Known Allergies Allergy (Verified 10/30/23 16:53) HPI HPI reff ER for std exposure syphillis: Details: She has positive syphilis titer 1:2 She also has positive trichomonas. HIV is negative. She doesnt know of exposure. [facility] Medical History (Updated 11/02/23 @ 23:50 by Chio Meza MD) Syphilis (acquired) Asthma Social History Patient Tobacco Use Status: Current everyday Tobacco user Substance Use Type: Former Substance User Advance Directives: No Advance Directives Information Provided: No Review of Systems Const All systems reviewed & are unremarkable except as noted in HPI and below Physical Exam Vital Signs: Last Vital Signs Pulse 85 10/23/23 11:34 Pulse Ox 98 10/23/23 11:34 Oxygen Delivery Method Room Air 10/23/23 11:34 BMI result Body Mass Index 34.9 Const General: cooperative HEENT Head: Yes normal to inspection Face and sinus: Yes normal facial exam Mouth: Normal oral and palatal mucosa present Teeth and gingiva: dentition normal Eyes General: appearance normal, both eyes and all related structures Pupils: Equal, round and reactive pupils present Resp Effort & Inspection: normal respiratory effort Cardio Rate: regular rate Rhythm: regular rhythm GI Palpation (GI): Soft to palpation and nontender General: Yes no CVA tenderness Back/Spine/Pelvis Back: no CVA tenderness Skin General skin exam: no rashes or lesions noted Neuro General: moves all extremities Cranial nerves: Yes Equal, round and reactive pupils present Extrem General: Yes normal to inspection Psych Appearance: grossly normal Assessment & Plan Assessment & Plan (1) Syphilis: Code(s): A53.9 - Syphilis, unspecified Category: Medical Plan: na (2) Syphilis (acquired): Comment: She has low titer but concerned about lack of energy?reinfection but doubt Code(s): A53.9 - Syphilis, unspecified Category: Medical Plan: Can give Doxycycline prophylaxis one month Plan na Orders: Orders RPR Monitor reflex titer 3 Months A53.9 - Syphilis, unspecified Medications: New doxycycline hyclate 100 mg PO BID 60 caps 0RF 30 days Discontinued metronidazole Discontinued Reason: Patient no longer taking 500 mg PO BID 14 tabs 0RF fluconazole Discontinued Reason: Patient no longer taking 150 mg PO Q3D 2 tabs 0RF amoxicillin-pot clavulanate 875-125 mg Discontinued Reason: Patient no longer taking 1 tab PO BID 14 tabs 0RF mupirocin 2% Discontinued Reason: Patient no longer taking 1 appl topical BID 15 grams 0RF Coding Level of Care Code New Pt Level 3 (11735) Diagnoses Syphilis A53.9 Syphilis (acquired) A53.9
[2023-10-23 11:34] VITALS: PULSE 85; O2SAT 98; BMI 34.9
== END 2023-10-23 12:08 | disposition home or self-care (01) ==
LOC: HO.HID 11:30
PROVIDERS: Visit Provider Internal Medicine
DX: A53.9 Syphilis, unspecified (principal)
CPT/HCPCS: 99203

== ENCOUNTER → 2023-10-23 11:30 | Outpatient (BNVA) | payer OTHER, SELFPAY | PROVIDERS: Visit Provider Internal Medicine | DX: A53.9 Syphilis, unspecified (principal) | CPT/HCPCS: 99202 ==

== ENCOUNTER 2023-10-30 16:31 | Emergency (ER) | payer MEDICAID, SELFPAY ==
[2023-10-30 16:51] VITALS: BP 119/62; PULSE 82; RESP 16; TEMP 36.6; O2SAT 94; BMI 35.0
--- NOTE | 2023-10-30 16:51 | ED_ITS ---
HPI - General Adult General Chief complaint: Urogenital-Female Stated complaint: UTI Time Seen by Provider: 10/30/23 18:42 Source: patient Mode of arrival: ambulatory Limitations: no limitations History of Present Illness ED Provider: robinson GOMEZ narrative: Patient is a 33-year-old female presenting to the ED with complaint of urinary urgency, dysuria, some hematuria x 4 days. Temp of 100 earlier today. Nausea without vomiting. Denies abdominal pain. States feels similar to prior UTIs. complaint: dysuria Onset (ago): day(s) Quality: burning Treatments prior to arrival: none Related Data Home Medications ?Medication ?Instructions ?Recorded ?Confirmed levetiracetam 750 mg tablet 750 mg PO BID 10/23/23 ([place]) Previous Rx's ?Medication ?Instructions ?Recorded doxycycline hyclate 100 mg capsule 100 mg PO BID 30 days #60 caps 10/23/23 cefuroxime axetil 250 mg tablet 250 mg PO BID #14 tabs 10/30/23 phenazopyridine 100 mg tablet 100 mg PO TID PRN pain 6 doses #6 10/30/23 tabs Allergies Allergy/AdvReac Type Severity Reaction Status Date / Time No Known Allergies Allergy Verified 10/30/23 16:53 Review of Systems Review of Systems: As per HPI. Yes all other systems are reviewed and are negative Constitutional: Constitutional: Reports as per HPI [facility] Past Medical History Medical History Asthma Social History Social History Patient Tobacco Use Status: Current everyday Tobacco user Substance Use Type: Former Substance User Advance Directives: No Advance Directives Information Provided: No Physical Exam ED Vital Signs: Vital Signs - 24 hr 10/30/23 16:51 Temperature 98 F Pulse Rate 82 Respiratory Rate 16 Blood Pressure 119/62 Pulse Oximetry 94 Oxygen Delivery Method Room Air BMI result Body Mass Index 35.0 Vital signs have been reviewed and appear to be correct. Blood pressure normal. Heart rate normal. Respiratory rate normal. Temperature normal. Oxygen saturation normal. Const General: cooperative, healthy appearing and no acute distress Orientation/consciousness: oriented to person, oriented to place, oriented to time and patient oriented x3 Limitations: no limitations HENMT Head: Yes normocephalic and Yes atraumatic Ears: external ears normal General nose exam: Normal external nose present Face and sinus: Yes face symmetric Mouth: oropharynx normal and moist mucous membranes Throat: Yes uvula midline Eyes Pupils: Equal, round and reactive pupils present Neck Neck: Yes normal visual inspection and Yes supple Resp Effort & Inspection: normal respiratory effort and able to speak in complete sentences Auscultation: clear to auscultation bilaterally Cardio Rate: regular rate Rhythm: regular rhythm Heart sounds: S1 normal heart sound present and S2 normal heart sound present GI Palpation (GI): Soft to palpation and nontender Auscultation: normoactive bowel sounds General: Yes no CVA tenderness Back/Spine/Pelvis Back: no CVA tenderness Skin General skin exam: elasticity normal and turgor normal Neuro General: oriented to person, oriented to place, oriented to time, patient oriented x3, moves all extremities, no focal motor deficits and CN's II-XI int act bilaterally Cranial nerves: Yes Equal, round and reactive pupils present Cognition (Neuro): normal cognition Extrem General: Yes full ROM, Yes no pedal edema and Yes no calf tenderness Psych Mental Status: mental status grossly normal Affect: normal affect Thought process: Normal thought process present Medical Decision Making Medical Decision Making [facility] Narrative: Patient is a 33-year-old female presenting to the ED with complaint of urinary urgency, dysuria, some hematuria. On exam patient is awake, A+Ox3, VS WNL, afebrile, normal neurological exam without focal deficits, physical exam findings as above. Given reported symptoms and physical exam findings, initial differential includes UTI, pyelonephritis, renal colic. Urinalysis notable for 3+ leukocytes, trace blood, greater than 50 wbc's, negative . Will treat for UTI with cefuroxime. Follow-up with PCP. Return precautions discussed. Patient verbalized understanding of and agreement with plan. Differential Diagnosis Differential Diagnoses: The differential diagnosis associated with the presentation includes As per [facility]. Lab Data [facility] Lab Attestation statement: I reviewed the patient's lab results. As per [facility] Labs: Lab Results 10/30/23 Range/Units 18:06 Urine Color Yellow Urine Appearance Cloudy Urine pH 7.0 (5.0-9.0) Ur Specific [place] 1.020 (1.005-1.025) Urine Protein Negative (Neg-Trace) mg/dL Urine Glucose (UA) Negative (Negative) mg/dL Urine Ketones Trace (Negative) mg/dL Urine Blood Trace H (Negative) Urine Nitrite Negative (Negative) Ur Leukocyte Esterase Large (3+) H (Negative) Urine RBC 6-10 H (0-2) /HPF Urine WBC >50 H (0-5) /HPF Ur Squamous Epith Cells 3-5 (0-2) /HPF Urine Bacteria None Seen (None Seen) Hyaline Casts 0-2 (0-2) /LPF Urine Test NEGATIVE (NEGATIVE) External Record Review External record reviewed: Inpatient record, Office record and Outpatient record Prescription Management I considered prescription management with: Antibiotic Discharge Plan Discharge Clinical Impression: Urinary tract infection Patient Disposition: Home, Self-Care Instructions: Urinary Tract Infection in Women (DC) Additional Instructions: You have been evaluated in the emergency department today for your urinary symptoms. Your evaluation, including urinalysis, suggests that your symptoms are due to urinary tract infection. Please take your prescribed antibiotics for the full course of medication as directed. Please follow-up with your primary care provider within 2 days. Return to the emergency department if you experience fevers 100.4? F or greater, worsening or uncontrolled pain, vomiting, flank pain, or for any other concerning symptoms. Prescriptions: New cefuroxime axetil 250 mg tablet 250 mg PO BID Qty: 14 0RF phenazopyridine 100 mg tablet 100 mg PO TID PRN (Reason: pain) Qty: 6 0RF No Action levetiracetam [Keppra] 750 mg tablet 750 mg PO BID doxycycline hyclate 100 mg capsule 100 mg PO BID 30 Days Qty: 60 0RF Print Language: Yi
[2023-10-30 18:22] LABS: Appearance Urine Cloudy; Color Urine Yellow; Glucose Urine UA Negative (Negative); Leukocyte Esterase Urine Large (3+) (Negative); Nitrite Urine Negative (Negative); UMIC TRIGGER UACC YES; Urine Blood Trace (Negative); Urine Ketones Trace mg/dL (Negative); Urine Protein Negative (Neg-Trace)
[2023-10-30 18:24] LABS: Bacteria Urine None Seen (None Seen); Hyaline Casts Urine 0-2 /LPF (0-2); UACC Culture Trigger YES; WBC Urine >50 /HPF (0-5)
[2023-10-30 18:28] LABS: UPreg QC Valid YES; Urine Pregnancy NEGATIVE (NEGATIVE)
[2023-10-30 18:58] VITALS: BP 119/62; PULSE 82; RESP 16; TEMP 36.6; O2SAT 94
== END 2023-10-30 18:59 | disposition home or self-care (01) ==
LOC: HO.ED 18:57
PROVIDERS: Registered Nurse Emergency; Emergency Provider Emergency Medicine
DX: N39.0 Urinary tract infection, site not specified (principal)
CPT/HCPCS: 81001; 81025; 87086; 99282; 99283

== ENCOUNTER 2024-01-25 18:00 | Emergency (ER) | payer OTHER, SELFPAY ==
--- NOTE | 2024-01-25 18:10 | ED_ITS ---
HPI - SOB/Dyspnea General Chief Complaint: General Medical Stated Complaint: flu like symptoms/vomiting Time Seen by Provider: 01/25/24 18:10 Related Data Home Medications ?Medication ?Instructions ?Recorded ?Confirmed levetiracetam 750 mg tablet 750 mg PO BID 10/23/23 (Keppra) Previous Rx's ?Medication ?Instructions ?Recorded doxycycline hyclate 100 mg capsule 100 mg PO BID 30 days #60 caps 10/23/23 cefuroxime axetil 250 mg tablet 250 mg PO BID #14 tabs 10/30/23 phenazopyridine 100 mg tablet 100 mg PO TID PRN pain 6 doses #6 10/30/23 tabs amoxicillin 875 mg-potassium 1 tab PO BID #20 tabs 01/25/24 clavulanate 125 mg tablet benzonatate 200 mg capsule 200 mg PO TID PRN cough #30 caps 01/25/24 ewqpjfxpij-vqyiljvyqeytk-qawgpiiq 1 tab PO Q6H PRN haeadace #20 tabs 01/25/24 50 mg-325 mg-40 mg tablet levetiracetam 750 mg tablet 750 mg PO BID #180 tabs 01/25/24 (Keppra) Allergies Allergy/AdvReac Type Severity Reaction Status Date / Time No Known Allergies Allergy Verified 01/25/24 18:15 [facility] Past Medical History Medical History (Updated 01/26/24 @ 00:01 by Sanford Kohli) Syphilis (acquired) Asthma Social History Social History Patient Tobacco Use Status: Current everyday Tobacco user Substance Use Type: Former Substance User Advance Directives: No Do you have a plan to hurt others: No Plan Physical Exam 2 Vital Signs: Vital Signs: Last Vital Signs Temp 97.9 F 01/25/24 22:28 Pulse 76 01/25/24 22:28 Resp 18 01/25/24 22:28 BP 123/85 01/25/24 22:28 Pulse Ox 100 01/25/24 22:28 O2 Del Method Room Air 01/25/24 22:28 BMI result Body Mass Index 33.1 Course Course Course Narrative: This is a Rapid Medical Exam performed in triage by Valerie Bazzi PA-C. Full HPI, ROS and PE to be performed by primary ED provider. 33 yo F w/pmhx syphillis, migraines, seizures (noncompliant on Keppra x 2wks) presenting to the ED c/o SOB x3 months w/rhinorrhea/congestion worsening over the past few days. Also reports ARCHULETA's & only thing that relieves her ARCHULETA's is vomiting x 10 years. Admits to ARCHULETA at present w/assoc nausea/photophobia, decreased PO intake. Admits last seizure was last . Has been out of Keppra x2 wks since getting out of care home PE: +congestion, talking in complete sentences Plan: EKG, Labs, viral testing, UA Medications Administered Discontinued Medications Generic Name Dose Route Start Last Admin Trade Name Freq PRN Reason Stop Dose Admin Acetaminophen/Butalbital/Caffeine 1 tab 01/25/24 21:59 01/25/24 22:16 Butalb/Acetamin/Caff 50/325/40 Tablet PO 01/25/24 22:00 1 tab ONCE ONE Administration Amoxicillin/Clavulanate Potassium 875 mg 01/25/24 21:59 01/25/24 22:16 Amoxicillin/Potassium Clav 875 Mg Tablet PO 01/25/24 22:00 875 mg ONCE ONE Administration Albuterol Sulfate 5 mg/ 0 mg 01/25/24 18:28 01/25/24 18:30 Albuterol/Ipratropium 3 ml INHALE 01/25/24 18:29 1 each ONCE ONE Administration Levetiracetam 750 mg 01/25/24 21:59 01/25/24 22:16 Levetiracetam 250 Mg Tablet PO 01/25/24 22:00 750 mg ONCE ONE Administration Medical Decision Making Lab Data 01/25/24 18:27 01/25/24 18:27 Labs: Lab Results 01/25/24 Range/Units 18:27 WBC 9.0 (4.8-10.8) X10*3/uL RBC 4.18 L (4.20-5.50) X10*6/uL Hgb 12.5 (12.0-16.0) g/dl Hct 37.2 (37.0-47.0) % MCV 89.0 (80.0-98.0) fL MCH 29.9 (27.0-33.0) pg MCHC 33.6 (31.0-35.0) g/dl RDW 12.8 (11.0-16.0) % Plt Count 284 (160-400) X10*3/uL MPV 9.6 (9.4-12.3) fL Immature Gran % (Auto) 0.2 (0.0-0.4) % Neut % (Auto) 61.7 (45-73) % Lymph % (Auto) 23.8 (20-40) % [place] % (Auto) 7.9 (2-11) % Eos % (Auto) 6.0 H (0-4) % Baso % (Auto) 0.4 (0-2) % Lymph # (Auto) 2.1 (1.2-4.9) X10*3/uL [place] # (Auto) 0.7 (0.1-1.2) X10*3/uL Eos # (Auto) 0.5 H (0.0-0.4) X10*3/uL Baso # (Auto) 0.0 (0.0-0.2) X10*3/uL Abs Immat Gran (auto) 0.02 (0.00-0.03) X10*3/uL Absolute Neuts (auto) 5.5 (2.0-8.3) x10*3/uL Absolute Nucleated RBC 0.000 (0.0-0.012) X10*3/uL Nucleated RBC % (auto) 0.0 (0.0-0.2) /100WBC PT 11.4 (10.9-12.4) SEC INR 1.0 (0.9-1.1) Sodium 142 (135-145) mmol/L Potassium 4.6 (3.3-5.1) mmol/L Chloride 106 (96-108) mmol/L Carbon Dioxide 26 (22-29) mmol/L Anion Gap 15 (12-20) BUN 15 (9-16) mg/dL Creatinine 0.75 (0.5-1.4) mg/dL Estim Creat Clear Calc 123.8 Estimated GFR > 60 Random Glucose 80 (60-115) mg/dL Calcium 9.1 (8.4-10.2) mg/dL Magnesium 2.1 (1.6-2.6) mg/dL Total Bilirubin 0.2 (0.0-1.0) mg/dL Direct Bilirubin < 0.2 (0.0-0.5) mg/dL AST 17 (5-31) U/L ALT 17 (0-31) U/L Alkaline Phosphatase 70 (39-117) U/L Total Protein 7.3 (6.5-8.0) g/dL Albumin 4.1 (3.5-5.0) g/dL Urine Color Yellow Urine Appearance Clear Urine pH 5.5 (5.0-9.0) Ur Specific [place] >= 1.030 H (1.005-1.025) Urine Protein Negative (Neg-Trace) mg/dL Urine Glucose (UA) Negative (Negative) mg/dL Urine Ketones Negative (Negative) mg/dL Urine Blood Negative (Negative) Urine Nitrite Negative (Negative) Ur Leukocyte Esterase Negative (Negative) Urine Test NEGATIVE (NEGATIVE) Influenza Type A (PCR) NEGATIVE (Negative) Influenza Type B (PCR) NEGATIVE (Negative) RSV RNA Qual (PCR) NEGATIVE (Negative) SARS-CoV-2 RNA (RT-PCR) NEGATIVE (Negative) Discharge Plan Discharge Clinical Impression: Acute bronchitis Patient Disposition: Home, Self-Care Instructions: Acute Bronchitis (ED) Additional Instructions: Take medication as prescribed Follow up with your PCP Prescriptions: New benzonatate 200 mg capsule 200 mg PO TID PRN (Reason: cough) Qty: 30 0RF ffsicqsekd-llkagtotlnlhb-drzc 50-325-40 mg tablet 1 tab PO Q6H PRN (Reason: haeadace) Qty: 20 0RF amoxicillin-pot clavulanate 875-125 mg tablet 1 tab PO BID Qty: 20 0RF levetiracetam [Keppra] 750 mg tablet 750 mg PO BID Qty: 180 0RF No Action cefuroxime axetil 250 mg tablet 250 mg PO BID Qty: 14 0RF phenazopyridine 100 mg tablet 100 mg PO TID PRN (Reason: pain) Qty: 6 0RF levetiracetam [Keppra] 750 mg tablet 750 mg PO BID doxycycline hyclate 100 mg capsule 100 mg PO BID 30 Days Qty: 60 0RF Stand Alone Forms: Work/School Release Interventions: ED Discharge Assessment Last Done: 01/25/24 22:28 Discharge Date/Time: 01/25/24 22:28 Print Language: Welsh
[2024-01-25 18:11] VITALS: BP 130/78; PULSE 93; RESP 20; TEMP 36.3; O2SAT 96; BMI 33.1
--- NOTE | 2024-01-25 18:14 | ECG_ITS ---
Test Reason : SOB Blood Pressure : / mmHG Vent. Rate : 067 BPM Atrial Rate : 067 BPM P-R Int : 146 ms QRS Dur : 084 ms QT Int : 394 ms P-R-T Axes : 033 019 024 degrees QTc Int : 416 ms Sinus rhythm Premature atrial complexes Otherwise normal ECG When compared with ECG of 19-AUG-2023 09:22, No significant changes seen Referred By: Valerie Bazzi Electronically Signed By:STONEY JURADO
[2024-01-25] MEDS: Albuterol Sulfate 5 MG, Albuterol/Iprat 2.5/0.5MG 3 ML 3 ML INHALE (18:30)
[2024-01-25 18:39] LABS: MANUAL DIFF FLAG NO
[2024-01-25 18:41] LABS: Basophils Percent Auto 0.4 % (0-2); Eosinophils Absolute Auto 0.5 X10*3/uL (0.0-0.4); Hematocrit 37.2 % (37.0-47.0); Hemoglobin 12.5 g/dl (12.0-16.0); Imm Gran Abs Auto 0.02 X10*3/uL (0.00-0.03); Imm Gran Pct Auto 0.2 % (0.0-0.4); Lymphocytes Absolute Auto 2.1 X10*3/uL (1.2-4.9); Lymphocytes Percent Auto 23.8 % (20-40); Mean Corpuscular HGB Conc 33.6 g/dl (31.0-35.0); Mean Corpuscular Hemoglobin 29.9 pg (27.0-33.0); Mean Platelet Volume 9.6 fL (9.4-12.3); Monocytes Absolute Auto 0.7 X10*3/uL (0.1-1.2); Monocytes Percent Auto 7.9 % (2-11); Neutrophils Absolute Auto 5.5 x10*3/uL (2.0-8.3); Neutrophils Percent Auto 61.7 % (45-73); Platelet Count 284 X10*3/uL (160-400); Red Blood Count 4.18 X10*6/uL (4.20-5.50); Red Cell Distribution Width 12.8 % (11.0-16.0)
[2024-01-25 18:42] LABS: Appearance Urine Clear; Color Urine Yellow; Glucose Urine UA Negative (Negative); Leukocyte Esterase Urine Negative (Negative); Nitrite Urine Negative (Negative); PH 5.5 (5.0-9.0); Specific Gravity - Urine >= 1.030 (1.005-1.025); Urine Blood Negative (Negative); Urine Ketones Negative (Negative); Urine Pregnancy NEGATIVE (NEGATIVE); Urine Protein Negative (Neg-Trace)
[2024-01-25 18:43] LABS: UPreg QC Valid YES
[2024-01-25 18:51] LABS: Prothrombin Time 11.4 SEC (10.9-12.4)
[2024-01-25 18:56] LABS: Alanine Aminotransferase 17 U/L (0-31); Albumin Level 4.1 g/dL (3.5-5.0); Alkaline Phosphatase 70 U/L (39-117); Anion Gap 15 (12-20); Aspartate Amino Transferase 17 U/L (5-31); Bilirubin Direct < 0.2 mg/dL (0.0-0.5); Bilirubin Total 0.2 mg/dL (0.0-1.0); Blood Urea Nitrogen 15 mg/dL (9-16); Calcium 9.1 mg/dL (8.4-10.2); Carbon Dioxide 26 mmol/L (22-29); Chloride 106 mmol/L (96-108); Creatinine Clr Calc Pharmacy 123.8; Estimated Glomerular Filt Rate > 60; Glucose Random 80 mg/dL (60-115); Magnesium 2.1 mg/dL (1.6-2.6); Potassium 4.6 mmol/L (3.3-5.1); Sodium 142 mmol/L (135-145); Total Protein 7.3 g/dL (6.5-8.0)
[2024-01-25 19:19] LABS: Influenza A PCR NEGATIVE (Negative); Influenza B PCR NEGATIVE (Negative); Resp Syncy Virus RNA Qual PCR NEGATIVE (Negative); SARS COV2 PCR INHOUSE NEGATIVE (Negative)
--- NOTE | 2024-01-25 20:56 | PC.NURSE ---
pt reports improvement in nausea/vomiting/headache - tolerated chip and water while in the waiting room.
[2024-01-25] MEDS: Amoxicillin/Potassium Clav 875 MG TABLET PO (22:16)
[2024-01-25] MEDS: levETIRAcetam 250 MG TABLET 750 MG PO (22:16)
[2024-01-25] MEDS: Butalb/Acetamin/Caff 50/325/40 TABLET 1 TAB PO (22:16)
[2024-01-25 22:26] VITALS: BP 123/85; PULSE 76; RESP 18; TEMP 36.6; O2SAT 100
--- NOTE | 2024-01-25 22:27 | PC.NURSE ---
pt medicated per JUN for 10/15 headache, pm dose of abx and keppra.
[2024-01-25 22:28] VITALS: BP 123/85; PULSE 76; RESP 18; TEMP 36.6; O2SAT 100
== END 2024-01-25 22:28 | disposition home or self-care (01) ==
PROVIDERS: Physician Assistant; Emergency Provider Internal Medicine
DX: J40 Bronchitis, not specified as acute or chronic (principal); R06.02 Shortness of breath; Z03.818 Encounter for observation for suspected exposure to other biological agents ruled out; F17.210 Nicotine dependence, cigarettes, uncomplicated
CPT/HCPCS: 0241U; 36415; 80048; 80076; 81003; 81025; 83735; 85025; 85610; 93005; 99284

== ENCOUNTER → 2024-01-25 18:14 | Outpatient (BNV) | payer OTHER, SELFPAY | PROVIDERS: Emergency Provider Internal Medicine; Visit Provider Internal Medicine | DX: R00.1 Bradycardia, unspecified (principal) | CPT/HCPCS: 93010 ==

== ENCOUNTER 2024-02-07 12:04 | Emergency (ER) | payer OTHER, SELFPAY ==
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
[2024-02-07 12:17] VITALS: BP 111/71; BP 125/80; PULSE 67; PULSE 86; RESP 18; TEMP 36.6; O2SAT 93; O2SAT 97; BMI 33.3
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
[2024-02-07 13:16] VITALS: RESP 16
[2024-02-07] MEDS: Morphine Sulfate 4 MG/ML CARTRIDGE IVPUSH (13:16)
[2024-02-07] MEDS: Metoclopramide HCl 10 MG/2 ML VIAL IVPUSH (13:17)
[2024-02-07 13:29] LABS: MANUAL DIFF FLAG NO
[2024-02-07 13:32] LABS: Basophils Percent Auto 0.3 % (0-2); Eosinophils Absolute Auto 0.5 X10*3/uL (0.0-0.4); Eosinophils Percent Auto 6.9 % (0-4); Hematocrit 35.9 % (37.0-47.0); Hemoglobin 11.9 g/dl (12.0-16.0); Imm Gran Abs Auto 0.02 X10*3/uL (0.00-0.03); Imm Gran Pct Auto 0.3 % (0.0-0.4); Lymphocytes Absolute Auto 2.1 X10*3/uL (1.2-4.9); Mean Corpuscular HGB Conc 33.1 g/dl (31.0-35.0); Mean Corpuscular Hemoglobin 29.5 pg (27.0-33.0); Mean Corpuscular Volume 89.1 fL (80.0-98.0); Mean Platelet Volume 9.5 fL (9.4-12.3); Monocytes Absolute Auto 0.6 X10*3/uL (0.1-1.2); Neutrophils Absolute Auto 4.2 x10*3/uL (2.0-8.3); Neutrophils Percent Auto 56.5 % (45-73); Platelet Count 237 X10*3/uL (160-400); Red Blood Count 4.03 X10*6/uL (4.20-5.50); Red Cell Distribution Width 13.3 % (11.0-16.0); White Blood Count 7.5 X10*3/uL (4.8-10.8)
[2024-02-07 14:00] LABS: Alanine Aminotransferase 16 U/L (0-31); Albumin Level 3.6 g/dL (3.5-5.0); Alkaline Phosphatase 50 U/L (39-117); Anion Gap 10 (12-20); Aspartate Amino Transferase 23 U/L (5-31); Bilirubin Total 0.4 mg/dL (0.0-1.0); Blood Urea Nitrogen 7 mg/dL (9-16); Carbon Dioxide 28 mmol/L (22-29); Chloride 108 mmol/L (96-108); Creatinine Clr Calc Pharmacy 134.1; Estimated Glomerular Filt Rate > 60; Glucose Random 82 mg/dL (60-115); Potassium 4.5 mmol/L (3.3-5.1); Sodium 141 mmol/L (135-145); Total Protein 6.5 g/dL (6.5-8.0)
[2024-02-07 14:04] LABS: HCG Quantitative < 2 mIU/mL
[2024-02-07 14:29] VITALS: BP 120/66; PULSE 65; RESP 16; TEMP 36.8; O2SAT 98
[2024-02-07 15:29] VITALS: BP 120/66; PULSE 65; RESP 18; TEMP 36.8; O2SAT 98
== END 2024-02-07 15:30 | disposition home or self-care (01) ==
PROVIDERS: Physician Assistant Medical; Emergency Provider Emergency Medicine Emergency Medical Services
DX: R56.9 Unspecified convulsions (principal); R51.9 Headache, unspecified; M54.2 Cervicalgia; R10.2 Pelvic and perineal pain; Z79.899 Other long term (current) drug therapy
CPT/HCPCS: 36415; 70450; 72125; 80053; 83735; 84702; 85025; 96374; 96375; 99284; J2270; J2765

== ENCOUNTER 2025-01-08 23:41 | Emergency (ER) | payer MEDICAID, SELFPAY ==
[2025-01-08 23:44] VITALS: BP 118/56; PULSE 68; RESP 16; TEMP 36.8; O2SAT 100; BMI 31.9
--- NOTE | 2025-01-08 23:54 | PC.NURSE ---
this RN went to bring patient back to a room, was informed by registration patient went outside on her phone.
--- NOTE | 2025-01-09 00:26 | PC.NURSE ---
patient went outside on her phone 45 minutes ago and did not return.
== END 2025-01-09 00:27 | disposition left against medical advice (07) ==
PROVIDERS: Emergency Provider Emergency Medicine
DX: S09.90XA Unspecified injury of head, initial encounter (principal); X58.XXXA Exposure to other specified factors, initial encounter; Y93.9 Activity, unspecified; Y92.9 Unspecified place or not applicable; Y99.9 Unspecified external cause status; Z53.21 Procedure and treatment not carried out due to patient leaving prior to being seen by health care provider
CPT/HCPCS: 99281